=== PATIENT | male | born 2005 | race Two or more races ===

== ENCOUNTER 2023-06-20 13:02 | Emergency (ER) | payer MEDICAID ==
[~2023-06-20] VITALS: Ht 190.5 cm; Wt 178.2 kg
[2023-06-20 14:51] LABS: Urine Bacteria FEW /hpf (None Seen); Urine Blood 2+ /uL (Negative); Urine Clarity Turbid (Clear); Urine Color Light-Yellow (Yellow); Urine Protein, UAD 1+ (Negative); Urine Specific Gravity 1.019 (1.001-1.035); Urine Urobilinogen Normal (Negative); Urine WBC 126 /hpf (0 - 3); Urine pH 5.5 (5.0-9.0)
[2023-06-20 15:52] VITALS: BP 142/73; PULSE 95; RESP 18; TEMP 97.6; O2SAT 98
[2023-06-20 16:19] LABS: Chloride 104 mmol/L (98-107); Potassium 4.1 mmol/L (3.5-5.1); Sodium 137 mmol/L (136-145)
[2023-06-20 16:20] LABS: Anion Gap 7 (5-15); Carbon Dioxide 26 mmol/L (20-30)
[2023-06-20 16:21] LABS: Calcium 10.2 mg/dL (8.5-10.1)
[2023-06-20 16:26] LABS: BUN/Creatinine Ratio 9.3 (10.0-20.0); Blood Urea Nitrogen 7 mg/dL (9-23); Glucose 85 mg/dL (74-106)
[2023-06-20] MEDS: cefTRIAXone SOD 1,000 MG VL IM ONE (16:26)
[2023-06-20 16:30] LABS: Basophils # (auto) 0 10 ^3/uL (0-0.2); Basophils % (auto) 0.1 % (0.0-2.0); Eosinophils # (auto) 0.1 10 ^3/uL (0-0.8); Eosinophils % (auto) 0.4 % (0.0-7.0); Hemoglobin 14.7 g/dL (13.5-17.5); Lymphocytes # (auto) 2.2 10 ^3/uL (0.4-5.4); Lymphocytes % (auto) 13.2 % (10.0-50.0); Mean Corpuscular Hemoglobin 28.2 pg (28.0-32.0); Mean Corpuscular Hgb Conc. 33.5 g/dL (32.0-36.0); Mean Corpuscular Volume 84.4 fL (80.0-100.0); Monocytes % (auto) 5.8 % (0.0-12.0); Neutrophils # (auto) 13.5 10 ^3/uL (1.6-8.6); Neutrophils % (auto) 80.5 % (37.0-80.0); Red Blood Cells 5.22 10^6/uL (4.5-5.90); Red Cell Distribution Width 12.7 % (11.8-14.3); White Blood Cell 16.8 10^3/uL (4.4-10.8)
[2023-06-20 16:47] LABS: COVID19 ANTIGEN SOFIA FIA NEGATIVE (NEGATIVE); Rapid Influenza A Negative (Negative); Rapid Influenza B Negative (Negative)
[2023-06-20] MEDS ORDERED: NITR-87 PO (17:17)
[2023-06-21 08:06] LABS: RPR Non Reactive (Non Reactive)
[2023-06-21 20:06] LABS: Chlamydia Trachomatis, NAA Negative (Negative); Neisseria gonorrhoeae, NAA Negative (Negative)
== END 2023-06-20 17:25 | disposition home or self-care (01) ==
LOC: ER 13:02
DX: N30.91 Cystitis, unspecified with hematuria (principal); Z20.822 Contact with and (suspected) exposure to COVID-19
CPT/HCPCS: 36415; 80048; 81001; 85025; 86592; 86703; 87426; 87491; 87591; 87804; 96372; 99283; J0696

== ENCOUNTER 2023-07-06 17:31 | Emergency (ER) | payer MEDICAID ==
[~2023-07-06] VITALS: Ht 190.5 cm; Wt 137.1 kg
[~2023-07-06 17:31] MED LIST: NITR-87 PO
[2023-07-06 17:49] VITALS: BP 149/67; PULSE 86; RESP 16; O2SAT 97
[2023-07-06 19:00] LABS: Urine Bacteria None Seen /hpf (None Seen)
[2023-07-06 19:14] LABS: Urine Blood 3+ /uL (Negative); Urine Clarity Ex.Turbid (Clear); Urine Color Light-Orange (Yellow); Urine Mucus FEW (None Seen); Urine Protein, UAD 2+ (Negative); Urine Urobilinogen Normal (Negative); Urine WBC 2521 /hpf (0 - 3); Urine WBC Clumps PRESENT /hpf (None Seen)
[2023-07-06] MEDS ORDERED: BACDST PO (19:44)
== END 2023-07-06 20:15 | disposition home or self-care (01) ==
LOC: ER 17:31
DX: N39.0 Urinary tract infection, site not specified (principal); Z79.899 Other long term (current) drug therapy
CPT/HCPCS: 81001

== ENCOUNTER 2023-10-06 12:11 | Emergency (ER) | payer MEDICAID ==
[~2023-10-06] VITALS: Ht 182.9 cm; Wt 134.7 kg
[~2023-10-06 12:11] MED LIST changes: +BACDST PO
[2023-10-06] MEDS ORDERED: SODIUM CHLORIDE 0.9% 1,000 ML IV ONE (12:30)
[2023-10-06 13:59] LABS: Urine Bacteria FEW /hpf (None Seen); Urine Blood 3+ /uL (Negative); Urine Budding Yeast MODERATE /hpf (None Seen); Urine Clarity Cloudy (Clear); Urine Color Yellow (Yellow); Urine Protein, UAD 1+ (Negative); Urine Urobilinogen Normal (Negative); Urine WBC 359 /hpf (0 - 3); Urine pH 5.5 (5.0-9.0)
[2023-10-06 14:15] VITALS: BP 148/80; PULSE 88; RESP 16; TEMP 97; O2SAT 96
[2023-10-06] MEDS: cefTRIAXone SOD 1,000 MG VL IM ONE (14:39)
[2023-10-06] MEDS ORDERED: BACDST PO (14:42)
== END 2023-10-06 15:16 | disposition home or self-care (01) ==
LOC: ER 12:11
DX: N39.0 Urinary tract infection, site not specified (principal); Z79.899 Other long term (current) drug therapy
CPT/HCPCS: 81001; 96372; 99283; J0696